=== PATIENT | male | born 2000 | race Caucasian/White ===

== ENCOUNTER 2024-04-26 10:04 | Emergency (ER) | payer OTHER ==
[~2024-04-26] VITALS: Ht 172.7 cm; Wt 77.1 kg
[2024-04-26] MEDS ORDERED: DEXTROAMPH SACC10 M1 PO (10:25)
[2024-04-26] MEDS ORDERED: TRAZODONE100 MG PO (10:26)
[2024-04-26] MEDS ORDERED: GUANFACINE HCL1 MG PO (10:26)
[2024-04-26] MEDS ORDERED: AVPAK AZITHROM250 M1 PO (12:59)
== END 2024-04-26 13:11 | disposition home or self-care (01) ==
LOC: ED 10:04
DX: J40 Bronchitis, not specified as acute or chronic (principal); Z20.822 Contact with and (suspected) exposure to COVID-19; Z88.0 Allergy status to penicillin; Z90.89 Acquired absence of other organs

== ENCOUNTER 2024-07-21 23:08 | Emergency (ER) | payer OTHER ==
[~2024-07-21] VITALS: Ht 172.7 cm; Wt 77.1 kg
[~2024-07-21 23:08] MED LIST: AVPAK AZITHROM250 M1 PO; DEXTROAMPH SACC10 M1 PO; GUANFACINE HCL1 MG PO; TRAZODONE100 MG PO
[2024-07-22 00:22] LABS: BASO % 0.4 % (0.0-1.0); EOS # 0.1 10*3/uL (0.0-0.4); EOS % 0.7 % (1.0-4.0); HEMATOCRIT 43.3 % (42.0-52.0); MEAN CELL VOLUME 91.5 fl (80.0-94.0); MEAN CORPUSCULAR HGB 31.3 pg (27.0-31.0); MEAN CORPUSCULAR HGB CONC 34.2 g/dl (33.0-37.0); MEAN PLATELET VOLUME 10.2 fl (9.6-12.3); MONO # 0.7 10*3/uL (0.1-1.0); NEUT # 5.4 10*3/uL (2.3-7.9); NEUT % 61.1 % (47.0-73.0); PLATELET COUNT AUTOMATED 197 10*3/uL (130-400); RED BLOOD COUNT 4.73 10*6/uL (4.50-5.90); RED CELL DISTRI WIDTH 12.5 % (0-14.5); WHITE BLOOD COUNT 8.9 10*3/uL (4.8-10.8)
[2024-07-22] MEDS ORDERED: SODIUM CHLORIDE 0.9% 1,000 ML IV ONE ×2 (00:35→23:55)
[2024-07-22] MEDS ORDERED: Ondansetron Hydrochloride 4 MG/2 ML VIAL IV ONE ×2 (00:35→23:55)
[2024-07-22 00:55] LABS: BUN 12 mg/dl (9-23); CHLORIDE 107 mmol/L (98-107); POTASSIUM 3.3 mmol/L (3.4-5.1)
== END 2024-07-22 02:58 | disposition home or self-care (01) ==
LOC: ED 23:08
PROVIDERS: Emergency Medicine
DX: B34.9 Viral infection, unspecified (principal); Z20.822 Contact with and (suspected) exposure to COVID-19; R11.10 Vomiting, unspecified; R19.7 Diarrhea, unspecified; G40.909 Epilepsy, unspecified, not intractable, without status epilepticus; Z88.0 Allergy status to penicillin; Z79.899 Other long term (current) drug therapy